=== PATIENT | female | born 1945 | race Caucasian/White ===

== ENCOUNTER 2016-11-01 07:58 | Day surgery (SDC) | payer OTHER ==
[2016-11-01 08:21] VITALS: BMI 34.1
[2016-11-01] MEDS ORDERED: ACETAMINOPHEN 500 MG TABLET (FP) PO PRN (08:30)
[2016-11-01] MEDS ORDERED: oxyCODONE HCL 5 MG TABLET PO PRN (11:39)
[2016-11-01] MEDS ORDERED: LACTATED RINGERS SOLUTION 1,000 ML IV SCH (11:45)
[2016-11-01] MEDS ORDERED: ONDANSETRON 4 MG/2 ML VIAL IVPUSH PRN (11:50)
[2016-11-01] MEDS ORDERED: ONDANSETRON 4 MG/2 ML VIAL ONE (13:24)
[2016-11-01 13:43] VITALS: BP 125/80; PULSE 75; TEMP 98
--- NOTE | 2016-11-03 15:40 | OP ---
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 PROCEDURE: 1. Debridement and tailoring of defect, left lower lid. 2. Myocutaneous flap from left cheek to left medial canthus. 3. Skin muscle flap, left lower lid to left medial canthus. 4. Myocutaneous flap from glabella to left medial canthus with left medial canthoplasty. SURGEON: Rodolfo Pollock MD ANESTHESIA: LMA, essentially general. COMPLICATONS: None. ESTIMATED BLOOD LOSS: 10-20 mL. OPERATION REPORT: Patient was brought to the operating room, placed on the operating room table. Vital signs monitored by Anesthesia. Time-out was performed. Tetracaine was placed in both eyes. The patient was placed under LMA anesthesia. The wound was examined, and the plans for a myocutaneous flap from the left cheek and myocutaneous flap from the glabellar lesion were marked. Patient was given intravenous sedation, 2% Xylocaine with 1:100,000 epinephrine, and 0.5% Marcaine was injected throughout the forehead, glabella, left lower lid, left medial canthus, the nasal bridge, and the cheek, a total of 10 mL. The patient was prepped and draped in sterile fashion exposing both eyes and the left ear. The wound was then debrided and tailored. The first approach was to raise a flap from the cheek. Therefore, an incision was made along the nasal sidewall at the root of the nose. undermining of the deep dermal plane was carried out extending across the cheek, and this allowed rotation of the cheek flap up into the inferior half of the medial canthal defect. This was a V-to-Y deformity kind of flap. Then, the long arm of the nasal root was closed with some deep 3-0 chromic sutures recreating that nasal sulcus. The flap was thinned as needed, and it was sutured into the defect, and the subcuticular 4-0 and deep 4-0 chromic sutures, partially sutured at this time. Attention was now turned to the upper lid, where myocutaneous flap of the glabella was incised and dissected out from the forklift technician and procerus muscles, which were partially incised. Wide undermining over the nasal bridge and the forehead was carried out. The donor site was closed with deep 3-0 chromic sutures creating a glabellar line, and a flap was rotated and thinned as needed and used to cover the superior half of the medial canthal defect. The skin muscle flap was now developed in the lower lid, and the skin muscle was advanced nasally to meet the glabella from rotating glabellar flap. Glabellar flap was held into position with two double-armed 4-0 Prolene sutures, which were bent so that they could be placed through the periosteum on the nasal sidewall and then in deep medial canthus, then passed through the rotated myocutaneous flap, and then, passed through an bolsters to create the concavity and to advance the flap into place. Flap was thinned as needed, and now, the rotated flap from the cheek and from the glabella were now joined with subcuticular 4-0 and 5-0 chromic suture, and they were also joined to the nasal tissues and to the skin muscle flap in the left lower lid, covering the defect and reconstituting the medial canthus and nasal sidewall. The excess triangular tissue in both flaps that were advanced and rotated were excised to contour to the defect. The subcuticular tissues were closed with 5-0 chromic. Skin was then meticulously closed with running and interrupted 5-0 plain suture along the nasal root, along the junction of the rotated flap with the nose, along the junction of the rotated inferior flap with the myocutaneous flap of the glabella and along the junction of both the cheek flap and the glabellar flap to the skin muscle flap of the left lower lid. There was no tension on the left lower lid. Good reconstitution of the defect was performed. Bacitracin ointment was placed on all the sutures. A strip of Telfa was placed over the rotated flaps. Dental roll was placed over the concavity of the medial canthus and secured there with a 4-0 silk suture, and then Telfa. An eye patch and fluff were placed over the dental roll and taped to the forehead and cheek with Mastisol and paper tape, cutting out for the medial canthal to avoid irritation of the eye. This completed the operation, and the patient was taken to the recovery room in stable condition. RODOLFO POLLOCK M.D. [id number]
== END 2016-11-01 14:05 | disposition home or self-care (01) ==
LOC: FASU 07:58
PROVIDERS: ATTEND Ophthalmology
PROC: 0JX10ZC Transfer Face Subcutaneous Tissue and Fascia with Skin, Subcutaneous Tissue and Fascia, Open Approach (ICD-10-PCS; 2016-11-01)
PROC: 08SR0ZZ Reposition Left Lower Eyelid, Open Approach (ICD-10-PCS; principal; 2016-11-01 09:29)
DX: H02.89 Other specified disorders of eyelid (principal); Z85.828 Personal history of other malignant neoplasm of skin
CPT/HCPCS: 36415; 82947; 84132; 94760